=== PATIENT | female | born 1965 | race Caucasian/White ===

== ENCOUNTER 2024-01-12 14:02 | Emergency (ER) | payer OTHER, SELFPAY ==
[2024-01-12 14:09] VITALS: BP 143/94; PULSE 85; RESP 16; TEMP 36; O2SAT 99; BMI 34.5
--- NOTE | 2024-01-12 14:09 | ED.BACK ---
HPI - Back Pain/Injury General Chief Complaint: Back Pain/Injury Stated Complaint: Back pain Time Seen by Provider: 01/12/24 14:11 Source: patient Mode of arrival: ambulatory Limitations: no limitations History of Present Illness HPI Narrative: 58 yo female with no known medical history here with complaints of right sided back pain with radiation down the right leg after lifting something heavy yesterday. Taking ibuprofen with continued symptoms. No numbness, tingling in the extremities. No numbness in the groin. No bowel or bladder incontinence. No fevers, chills. Related Data Previous Rx's ?Medication ?Instructions ?Recorded cyclobenzaprine 10 mg tablet 10 mg PO TID PRN muscle spasm #15 01/12/24 tabs Allergies Allergy/AdvReac Type Severity Reaction Status Date / Time No Known Allergies Allergy Verified 01/12/24 14:13 Review of Systems Review of Systems: Yes all other systems are reviewed and are negative Constitutional: Constitutional: Reports no additional constitutional complaints, Denies body ache(s), Denies chills, Denies fever(s), Denies headache(s) and Denies weakness Eyes: Eyes: Reports no additional eye complaints and Denies change in vision ENT: Reports system reviewed and no additional complaints, except as documented, Denies dizziness, Denies headache(s), Denies nasal congestion, Denies nasal discharge and Denies neck pain Cardiovascular: Cardiovascular: Reports no additional cardiovascular complaints, Denies chest pain, Denies leg edema and Denies dyspnea Respiratory: Respiratory: Reports no additional respiratory complaints, Denies cough and Denies dyspnea Gastrointestinal: Gastrointestinal: Reports no additional gastrointestinal complaints, Denies abdominal pain, Denies diarrhea, Denies nausea and Denies vomiting Genitourinary: Genitourinary: Reports no additional female genitourinary complaints and Denies urinary incontinence Musculoskeletal: Musculoskeletal: Reports no additional musculoskeletal complaints, Reports back pain, Denies arthralgias, Denies joint swelling, Denies neck pain, Denies numbness, Reports radiating pain into limb and Denies tingling Integumentary/Breasts: Skin/Breast: Reports system reviewed and no additional complaints, except as docu and Denies rash Neurologic: Reports system reviewed and no additional complaints, except as documented, Denies Abnormal speech present, Denies dizziness, Denies headache(s), Denies numbness, Denies tingling and Denies weakness PMFSH Past Medical History Attestation statement: The following information was validated with the patient. Source: old records reviewed and nursing notes reviewed Physical Exam Vital Signs: Vital Signs: Last Vital Signs Temp 96.8 F 01/12/24 14:09 Pulse 85 01/12/24 14:09 Resp 16 01/12/24 14:09 BP 143/94 H 01/12/24 14:09 Pulse Ox 99 01/12/24 14:09 O2 Del Method Room Air 01/12/24 14:09 BMI result Body Mass Index 34.5 Const: General: cooperative, healthy appearing, comfortable and no acute distress Orientation/consciousness: patient oriented x3 Limitations: no limitations HEENT: Head: Yes normal to inspection Ears: hearing grossly normal bilaterally General nose exam: Normal external nose present Face and sinus: Yes normal facial exam Mouth: Normal oral and palatal mucosa present Throat: Yes posterior oropharynx normal Eyes: General: appearance normal, both eyes and all related structures Pupils: Equal, round and reactive pupils present Neck: Neck: Yes normal visual inspection Chest: Chest palpation & inspection: normal inspection of the chest Resp: Effort & Inspection: normal respiratory effort Auscultation: clear to auscultation bilaterally Cardio: Rate: regular rate Rhythm: regular rhythm Peripheral pulses: Peripheral pulses 2+ throughout GI: Inspection: Yes normal to inspection Palpation (GI): Soft to palpation and nontender Auscultation: normal bowel sounds : General: Yes no CVA tenderness Back/Spine/Pelvis: Other: Palpable muscle spasm to right right lower back worsened with flexion/extension of lumbar spine Back: no CVA tenderness Thoracic/Lumbar Spine: thoracic and lumbar spine normal to inspection Skin: General skin exam: no rashes or lesions noted Neuro: General: patient oriented x3, no focal motor deficits and normal sensation to monofilament Cranial nerves: Yes Equal, round and reactive pupils present Cognition (Neuro): normal cognition Speech: No Abnormal speech present Gait exam (Neuro): Normal gait present Motor exam (neuro): 5/5 motor strength present throughout Sensory Exam: Normal double simultaneous stimulation for sensation Deep tendon reflexes (DTR's): Right patellar reflex intensity grade: 2+ and Left patellar reflex intensity grade: 2+ Extrem: General: Yes normal to inspection Medications Administered Discontinued Medications Generic Name Dose Route Start Last Admin Trade Name Freq PRN Reason Stop Dose Admin Cyclobenzaprine HCl 10 mg 01/12/24 14:14 01/12/24 14:16 Cyclobenzaprine Hcl 10 Mg Tablet PO 01/12/24 14:15 10 mg ONCE ONE Administration Medical Decision Making Medical Decision Making MDM Narrative: 58 yo female with no known medical history here with complaints of right sided back pain with radiation down the right leg after lifting something heavy yesterday. Taking ibuprofen with continued symptoms. No numbness, tingling in the extremities. No numbness in the groin. No bowel or bladder incontinence. No fevers, chills. Palpable muscle spasm right lower back No neurological deficits or red flag symptoms. Patient given Flexeril 10 mg p.o. here in the emergency room. She reports she is adequate endodermal patches and ibuprofen at home which I recommend she continue. Reviewed worrisome signs and symptoms of when to return to the emergency room. Comfortable plan for discharge home. Differential Diagnosis Differential Diagnoses: The differential diagnosis associated with the presentation includes Low concern for fracture with no reports of injury or trauma Low concern for cord compression, cauda equina, epidural abscess, malignancy with no neurological deficits, no red flag symptoms, no history of immunocompromise state or IV drug abuse Admission/Observation Consideration of admission/observation: Escalation of care including admission/observation considered No neurological deficits or red flag symptoms to suggest need for emergent MRI, neurosurgery consultation and or admission or transfer Independent Historian Clinical information obtained from an independent historian. History obtained from or confirmed by: Spouse Tests considered The following testing was considered but not selected: No neurological deficits or red flag symptoms to suggest need for emergent MRI Prescription Management I considered prescription management with: Pain Medication Discharge Plan Discharge Clinical Impression: Muscle spasm Patient Disposition: Home, Self-Care Instructions: Muscle Spasm (ED) Additional Instructions: Heat or ice gentle stretching no heavy lifting or bending Continue ibuprofen, lidoderm patches at home return for worsening symptoms Prescriptions: New cyclobenzaprine 10 mg tablet 10 mg PO TID PRN (Reason: muscle spasm) Qty: 15 0RF Referrals: Patricio Faust MD [Primary Care Provider] - 1 week Stand Alone Forms: Work/School Release
[2024-01-12] MEDS: Cyclobenzaprine HCl 10 MG TABLET PO (14:16)
[2024-01-12 14:20] VITALS: BP 143/94; PULSE 85; RESP 16; TEMP 36; O2SAT 99
== END 2024-01-12 14:21 | disposition home or self-care (01) ==
LOC: HO.ED 14:20
PROVIDERS: Emergency Provider Emergency Medicine; PCP Internal Medicine
DX: M62.830 Muscle spasm of back (principal); M54.50 Low back pain, unspecified
CPT/HCPCS: 99283